=== PATIENT | female | born 1945 | race Caucasian/White ===

== ENCOUNTER 2022-10-24 14:55 | Outpatient (REF) | payer MEDICARE, SELFPAY ==
[2022-10-24 18:18] LABS: HCT 40.6 % (36.0-46.0); HGB 13.1 g/dL (11.2-15.7); MCH 30.5 pg (27.0-33.0); MCHC 32.3 % (32.0-36.0); MCV 94 fL (80-95); MPV 10.6 fL (8.0-11.0); Platelet Count 331 10^3/uL (130-400); RDW 13.4 % (11.7-14.6); RDW-SD 46.5 fL
[2022-10-24 18:53] LABS: Hemoglobin A1C 5.5 % (<5.7)
[2022-10-24 20:11] LABS: Anion Gap 10.1 mmol/L (3-11); BUN 16 mg/dL (7-18); CO2 26.9 mmol/L (21.0-32.0); CREATININE 0.9 mg/dL (0.55-1.02); Calcium 9.5 mg/dL (8.5-10.1); Calculated LDL 205 mg/dL (<100); Chloride 106 mmol/L (98-107); Cholesterol 314 mg/dL (<200); Estimated GFR 65.84 (mL/min/1.73m2); Glucose 92 mg/dL (74-106); HDL Cholesterol 89 mg/dL (40-60); Potassium 4.1 mmol/L (3.5-5.1); Sodium 143 mmol/L (136-145); TSH (W/Ref FT4) 3.97 uIU/mL (0.36-3.74); Triglyceride 104 mg/dL (<150)
[2022-10-24 20:30] LABS: FREE T4 0.88 ng/dL (0.76-1.46)
== END 2022-10-24 14:56 | disposition home or self-care (01) ==
LOC: NCHCN 14:55
PROVIDERS: Visit Provider Nurse Practitioner Family
DX: E05.90 Thyrotoxicosis, unspecified without thyrotoxic crisis or storm (principal); R73.03 Prediabetes; E78.5 Hyperlipidemia, unspecified; I48.0 Paroxysmal atrial fibrillation; I10 Essential (primary) hypertension; Z51.81 Encounter for therapeutic drug level monitoring
CPT/HCPCS: 80048; 80061; 85027; 83036; 84439; 84443